=== PATIENT | female | born 2005 | race Caucasian/White ===

== ENCOUNTER 2024-04-03 01:33 | Emergency (ER) | payer BC ==
[~2024-04-03] VITALS: Ht 167.6 cm; Wt 102.1 kg
[2024-04-03 01:44] VITALS: BP 145/90; PULSE 110; RESP 18; TEMP 98; O2SAT 98
[2024-04-03 02:22] VITALS: BP 145/90; PULSE 110; RESP 18; TEMP 98; O2SAT 98
== END 2024-04-03 02:22 | disposition left against medical advice (07) ==
LOC: MED 01:33
DX: O20.9 Hemorrhage in early pregnancy, unspecified (principal); Z53.21 Procedure and treatment not carried out due to patient leaving prior to being seen by health care provider